=== PATIENT | female | born 1935 | race Caucasian/White ===

== ENCOUNTER 2023-02-18 17:33 | Inpatient (IN) | payer OTHER ==
[2023-02-18 18:15] LABS: BASO % 0.6 % (0-2.0); EOS % 1.6 % (0-4.5); HEMATOCRIT 29.4 % (32.4-45.2); HEMOGLOBIN 9.5 GM/dL (10.7-15.3); LYMPH % 19.8 % (8-40); MCH 28.2 pg (25.7-33.7); MCHC 32.2 g/dl (32.0-36.0); MEAN CELL VOLUME 87.5 fl (80-96); MEAN PLT VOLUME 7.6 fl (7.5-11.1); MONO % 11.4 % (3.8-10.2); NEUT % 66.6 % (42.8-82.8); PLATELET COUNT 228 10^3/uL (134-434); RBC 3.36 M/mm3 (3.60-5.2); RDW 16.4 % (11.6-15.6); WHITE BLOOD COUNT 6.4 K/mm3 (4.0-10.0)
[2023-02-18 18:35] LABS: EPI CELLS 6 /uL (0-25.1); HYALINE CASTS 1 /uL (0-3.1); URINE APPEARANCE CLEAR; URINE BACTERIA 0 /uL (0-1359); URINE BILIRUBIN NEGATIVE (NEGATIVE); URINE COLOR YELLOW; URINE GLUCOSE (UA) NEGATIVE (NEGATIVE); URINE KETONE NEGATIVE (NEGATIVE); URINE LEUK ESTERASE NEGATIVE (NEGATIVE); URINE NITRITE NEGATIVE (NEGATIVE); URINE PROTEIN 1+ (NEGATIVE); URINE RBC 19 /uL (0-23.9); URINE UROBILINOGEN 0.2 mg/dL (0.2-1.0); URINE WBC 3 /uL (0-25.8)
[2023-02-18 18:47] LABS: POTASSIUM 4.7 mmol/L (3.5-5.1)
[2023-02-18 18:50] LABS: ALBUMIN 3.5 g/dl (3.4-5.0); BLOOD UREA NITROGEN 30.6 mg/dL (7-18); MAGNESIUM 1.6 mg/dL (1.8-2.4)
[2023-02-18 18:52] LABS: CREATININE 1.2 mg/dL (0.55-1.3); PHOSPHOROUS 3.9 mg/dL (2.5-4.9)
[2023-02-18 18:54] LABS: BILIRUBIN,TOTAL 0.5 mg/dL (0.2-1); TOT PROT 7.2 g/dl (6.4-8.2)
[2023-02-18] MEDS ORDERED: MAGNESIUM SULF 50% (8.12 MEQ/2 ML-1 GM VIAL) IVPB ONE (19:49)
[2023-02-18 20:16] LABS: INR 1.72 (0.83-1.09); PROTHROMBIN TIME (PATIENT) 19.8 SEC (9.7-13.0)
[2023-02-18 20:18] LABS: ACTIVATED PTT 35.9 SECONDS (25.2-36.5)
[2023-02-18] MEDS ORDERED: MAGNESIUM 1GM/D5W - 1 GM/100 ML IVPB IVPB ONE (21:16)
[2023-02-19] MEDS: glyBURIDE 5 MG TABLET PO SCH ×3 (08:59→17:50)
[2023-02-19 09:26] LABS: BASO % 0.8 % (0-2.0); EOS % 1.1 % (0-4.5); HEMATOCRIT 29.5 % (32.4-45.2); HEMOGLOBIN 10.1 GM/dL (10.7-15.3); LYMPH % 16.4 % (8-40); MCH 29.5 pg (25.7-33.7); MCHC 34.1 g/dl (32.0-36.0); MEAN CELL VOLUME 86.4 fl (80-96); MEAN PLT VOLUME 8.5 fl (7.5-11.1); MONO % 9.9 % (3.8-10.2); NEUT % 71.8 % (42.8-82.8); PLATELET COUNT 242 10^3/uL (134-434); RBC 3.41 M/mm3 (3.60-5.2); RDW 15.9 % (11.6-15.6); WHITE BLOOD COUNT 8.8 K/mm3 (4.0-10.0)
[2023-02-19 09:47] LABS: POTASSIUM 4.5 mmol/L (3.5-5.1)
[2023-02-19] MEDS: hydrALAZINE HCL 10 MG TABLET PO SCH (09:47)
[2023-02-19] MEDS: propRANOLol HCL 10 MG TABLET PO SCH (09:48)
[2023-02-19] MEDS: ENALAPRIL MALEATE 10 MG TABLET PO SCH (09:48)
[2023-02-19] MEDS: APIXABAN 5 MG TABLET PO SCH ×3 (09:48→21:11)
[2023-02-19 09:51] LABS: ALBUMIN 3.2 g/dl (3.4-5.0); BLOOD UREA NITROGEN 26.1 mg/dL (7-18); MAGNESIUM 1.5 mg/dL (1.8-2.4)
[2023-02-19 09:52] LABS: CREATININE 0.9 mg/dL (0.55-1.3)
[2023-02-19 09:54] LABS: BILIRUBIN,TOTAL 0.7 mg/dL (0.2-1); TOT PROT 6.7 g/dl (6.4-8.2)
[2023-02-19] MEDS ORDERED: MIRTAZAPINE 15 MG TABLET (FP) PO SCH (10:00)
[2023-02-19] MEDS ORDERED: OLANZapine 2.5 MG TABLET PO SCH (10:00)
[2023-02-19] MEDS ORDERED: MAGNESIUM SULF 50% (8.12 MEQ/2 ML-1 GM VIAL) IVPB ONE (10:09)
[2023-02-19] MEDS: HALOPERIDOL LACTATE 2 MG/ML UNIT-DOSE CUPS PO PRN (21:02)
[2023-02-19] MEDS ORDERED: LORazepam 2 MG/ML SDV VIAL IM ONE (23:43)
[2023-02-20] MEDS: glyBURIDE 5 MG TABLET PO SCH ×2 (06:10→17:02)
[2023-02-20] MEDS: metFORMIN HCL 500 MG TABLET (FP) PO SCH ×3 (06:10→17:02)
[2023-02-20 09:09] LABS: BASO % 0.4 % (0-2.0); EOS % 0.9 % (0-4.5); HEMATOCRIT 25.4 % (32.4-45.2); HEMOGLOBIN 8.8 GM/dL (10.7-15.3); MCH 29.5 pg (25.7-33.7); MCHC 34.5 g/dl (32.0-36.0); MEAN CELL VOLUME 85.5 fl (80-96); MEAN PLT VOLUME 8.6 fl (7.5-11.1); MONO % 11.7 % (3.8-10.2); PLATELET COUNT 198 10^3/uL (134-434); RBC 2.96 M/mm3 (3.60-5.2); RDW 15.3 % (11.6-15.6); WHITE BLOOD COUNT 8.3 K/mm3 (4.0-10.0)
[2023-02-20] MEDS: APIXABAN 5 MG TABLET PO SCH (09:09)
[2023-02-20] MEDS: propRANOLol HCL 10 MG TABLET PO SCH (09:09)
[2023-02-20] MEDS: hydrALAZINE HCL 10 MG TABLET PO SCH (09:09)
[2023-02-20] MEDS: ENALAPRIL MALEATE 10 MG TABLET PO SCH (09:09)
[2023-02-20 09:35] LABS: POTASSIUM 3.8 mmol/L (3.5-5.1)
[2023-02-20 09:39] LABS: CALCIUM 8.2 mg/dL (8.5-10.1)
[2023-02-20 09:40] LABS: ALBUMIN 2.8 g/dl (3.4-5.0); BLOOD UREA NITROGEN 21.7 mg/dL (7-18)
[2023-02-20 09:44] LABS: BILIRUBIN,TOTAL 0.8 mg/dL (0.2-1)
[2023-02-20 09:46] LABS: TOT PROT 5.8 g/dl (6.4-8.2)
[2023-02-20] MEDS: HALOPERIDOL LACTATE 2 MG/ML UNIT-DOSE CUPS PO PRN (20:47)
[2023-02-20] MEDS: APIXABAN 2.5 MG TABLET PO SCH (21:53)
[2023-02-21] MEDS: glyBURIDE 5 MG TABLET PO SCH ×2 (06:03→17:10)
[2023-02-21] MEDS: metFORMIN HCL 500 MG TABLET (FP) PO SCH ×3 (06:03→17:10)
[2023-02-21] MEDS: APIXABAN 2.5 MG TABLET PO SCH ×2 (10:15→21:51)
[2023-02-21] MEDS: hydrALAZINE HCL 10 MG TABLET PO SCH (10:15)
[2023-02-21] MEDS: ENALAPRIL MALEATE 10 MG TABLET PO SCH (10:16)
[2023-02-21] MEDS: propRANOLol HCL 10 MG TABLET PO SCH (10:16)
[2023-02-22] MEDS: HALOPERIDOL LACTATE 2 MG/ML UNIT-DOSE CUPS PO PRN ×3 (04:18→21:00)
[2023-02-22] MEDS: metFORMIN HCL 500 MG TABLET (FP) PO SCH ×3 (06:16→17:09)
[2023-02-22] MEDS: glyBURIDE 5 MG TABLET PO SCH ×2 (06:16→17:09)
[2023-02-22] MEDS: ENALAPRIL MALEATE 10 MG TABLET PO SCH (09:12)
[2023-02-22] MEDS: APIXABAN 2.5 MG TABLET PO SCH ×2 (09:12→20:59)
[2023-02-22] MEDS: hydrALAZINE HCL 10 MG TABLET PO SCH (09:12)
[2023-02-22] MEDS: propRANOLol HCL 10 MG TABLET PO SCH (09:12)
[2023-02-22] MEDS: ACETAMINOPHEN 325 MG TABLET (FP) PO PRN (20:58)
[2023-02-23] MEDS: ACETAMINOPHEN 325 MG TABLET (FP) PO PRN (06:22)
[2023-02-23] MEDS: glyBURIDE 5 MG TABLET PO SCH ×2 (06:22→16:24)
[2023-02-23] MEDS: metFORMIN HCL 500 MG TABLET (FP) PO SCH ×3 (06:22→16:24)
[2023-02-23] MEDS: APIXABAN 2.5 MG TABLET PO SCH ×2 (09:14→21:24)
[2023-02-23] MEDS: ENALAPRIL MALEATE 10 MG TABLET PO SCH (09:14)
[2023-02-23] MEDS: propRANOLol HCL 10 MG TABLET PO SCH (09:14)
[2023-02-23] MEDS: hydrALAZINE HCL 10 MG TABLET PO SCH (09:14)
[2023-02-23] MEDS: HALOPERIDOL LACTATE 2 MG/ML UNIT-DOSE CUPS PO PRN ×2 (09:15→21:24)
[2023-02-23 21:37] VITALS: BMI 19.1
[2023-02-24] MEDS ORDERED: HALOPERIDOL LACTATE 5 MG/ML IM ONE ×2 (00:44→23:30)
[2023-02-24] MEDS: ACETAMINOPHEN 325 MG TABLET (FP) PO PRN (02:05)
[2023-02-24] MEDS: metFORMIN HCL 500 MG TABLET (FP) PO SCH ×4 (06:07→16:34)
[2023-02-24] MEDS: glyBURIDE 5 MG TABLET PO SCH ×3 (06:07→16:36)
[2023-02-24] MEDS: ENALAPRIL MALEATE 10 MG TABLET PO SCH (09:24)
[2023-02-24] MEDS: hydrALAZINE HCL 10 MG TABLET PO SCH (09:24)
[2023-02-24] MEDS: propRANOLol HCL 10 MG TABLET PO SCH (09:24)
[2023-02-24] MEDS: APIXABAN 2.5 MG TABLET PO SCH ×2 (09:24→21:50)
[2023-02-24] MEDS: HALOPERIDOL LACTATE 2 MG/ML UNIT-DOSE CUPS PO PRN (20:03)
[2023-02-25] MEDS: glyBURIDE 5 MG TABLET PO SCH ×3 (06:30→17:04)
[2023-02-25] MEDS: metFORMIN HCL 500 MG TABLET (FP) PO SCH ×4 (06:30→17:04)
[2023-02-25] MEDS: HALOPERIDOL LACTATE 2 MG/ML UNIT-DOSE CUPS PO PRN (06:43)
[2023-02-25] MEDS: hydrALAZINE HCL 10 MG TABLET PO SCH (11:23)
[2023-02-25] MEDS: ENALAPRIL MALEATE 10 MG TABLET PO SCH (11:24)
[2023-02-25] MEDS: APIXABAN 2.5 MG TABLET PO SCH ×2 (11:24→21:15)
[2023-02-25] MEDS: propRANOLol HCL 10 MG TABLET PO SCH (11:24)
[2023-02-25] MEDS: ACETAMINOPHEN 325 MG TABLET (FP) PO PRN (21:15)
[2023-02-26] MEDS: glyBURIDE 5 MG TABLET PO SCH ×4 (06:02→17:21)
[2023-02-26] MEDS: metFORMIN HCL 500 MG TABLET (FP) PO SCH ×4 (06:02→17:21)
[2023-02-26] MEDS ORDERED: cloNIDine-TTS 0.1 MG/24 HRS PATCH.TDWK TD SCH (10:00)
[2023-02-26] MEDS: APIXABAN 2.5 MG TABLET PO SCH ×2 (11:03→21:44)
[2023-02-26] MEDS: hydrALAZINE HCL 10 MG TABLET PO SCH (11:03)
[2023-02-26] MEDS: ENALAPRIL MALEATE 10 MG TABLET PO SCH (11:04)
[2023-02-26] MEDS: propRANOLol HCL 10 MG TABLET PO SCH (11:04)
[2023-02-26 15:25] LABS: HEMATOCRIT 33.2 % (32.4-45.2); HEMOGLOBIN 10.8 GM/dL (10.7-15.3); MCH 28.2 pg (25.7-33.7); MCHC 32.6 g/dl (32.0-36.0); MEAN CELL VOLUME 86.5 fl (80-96); MEAN PLT VOLUME 7.7 fl (7.5-11.1); PLATELET COUNT 250 10^3/uL (134-434); RBC 3.83 M/mm3 (3.60-5.2); RDW 15.2 % (11.6-15.6); WHITE BLOOD COUNT 6.4 K/mm3 (4.0-10.0)
[2023-02-26 16:16] LABS: POTASSIUM 4.6 mmol/L (3.5-5.1)
[2023-02-26 16:19] LABS: BLOOD UREA NITROGEN 22.4 mg/dL (7-18)
[2023-02-26 16:22] LABS: CREATININE 1.1 mg/dL (0.55-1.3)
[2023-02-26 16:23] LABS: BILIRUBIN,TOTAL 0.6 mg/dL (0.2-1)
[2023-02-26 16:24] LABS: TOT PROT 7.3 g/dl (6.4-8.2)
[2023-02-26 16:25] LABS: ALBUMIN 3.4 g/dl (3.4-5.0); CALCIUM 9.5 mg/dL (8.5-10.1)
[2023-02-27] MEDS: glyBURIDE 5 MG TABLET PO SCH ×2 (06:07→16:36)
[2023-02-27] MEDS: metFORMIN HCL 500 MG TABLET (FP) PO SCH ×3 (06:07→16:36)
[2023-02-27] MEDS: hydrALAZINE HCL 10 MG TABLET PO SCH (09:22)
[2023-02-27] MEDS: APIXABAN 2.5 MG TABLET PO SCH ×2 (09:23→21:20)
[2023-02-27] MEDS: propRANOLol HCL 10 MG TABLET PO SCH (09:23)
[2023-02-27] MEDS: ENALAPRIL MALEATE 10 MG TABLET PO SCH (09:23)
[2023-02-27] MEDS: DEXTROSE 5%-NORMAL SALINE 1,000 ML IV SCH (16:36)
[2023-02-27] MEDS: ACETAMINOPHEN 325 MG TABLET (FP) PO PRN (21:19)
[2023-02-28] MEDS: glyBURIDE 5 MG TABLET PO SCH ×2 (06:00→16:11)
[2023-02-28] MEDS: metFORMIN HCL 500 MG TABLET (FP) PO SCH ×3 (06:00→16:11)
[2023-02-28] MEDS: ACETAMINOPHEN 325 MG TABLET (FP) PO PRN (06:00)
[2023-02-28] MEDS: DEXTROSE 5%-NORMAL SALINE 1,000 ML IV SCH ×2 (11:35→21:38)
[2023-02-28] MEDS: ENALAPRIL MALEATE 10 MG TABLET PO SCH (12:40)
[2023-02-28] MEDS: propRANOLol HCL 10 MG TABLET PO SCH (12:40)
[2023-02-28] MEDS: APIXABAN 2.5 MG TABLET PO SCH ×2 (12:41→21:39)
[2023-02-28] MEDS: hydrALAZINE HCL 10 MG TABLET PO SCH (12:41)
[2023-03-01] MEDS: glyBURIDE 5 MG TABLET PO SCH ×2 (05:59→17:13)
[2023-03-01] MEDS: metFORMIN HCL 500 MG TABLET (FP) PO SCH ×3 (06:00→16:49)
[2023-03-01 08:21] VITALS: TEMP 98.2
[2023-03-01] MEDS: hydrALAZINE HCL 10 MG TABLET PO SCH (09:33)
[2023-03-01] MEDS: ENALAPRIL MALEATE 10 MG TABLET PO SCH (09:33)
[2023-03-01] MEDS: APIXABAN 2.5 MG TABLET PO SCH (09:33)
[2023-03-01] MEDS: propRANOLol HCL 10 MG TABLET PO SCH (09:33)
[2023-03-01 14:02] VITALS: BP 132/52; PULSE 69; RESP 18
== END 2023-03-01 18:06 | DRG 884 ==
LOC: JER 17:33 → JERBED 21:38 → J5S 02-19 01:25 → OBSVTOIN 02-24 14:56
PROVIDERS: ADMIT Internal Medicine; ATTEND Family Medicine
DX: F03.911 Unspecified dementia, unspecified severity, with agitation (principal); S22.42XA Multiple fractures of ribs, left side, initial encounter for closed fracture; I48.19 Other persistent atrial fibrillation; J90 Pleural effusion, not elsewhere classified; J94.2 Hemothorax; R44.3 Hallucinations, unspecified; R78.81 Bacteremia; R41.82 Altered mental status, unspecified; E11.9 Type 2 diabetes mellitus without complications; K59.00 Constipation, unspecified; K86.89 Other specified diseases of pancreas; I10 Essential (primary) hypertension; W19.XXXA Unspecified fall, initial encounter; Y92.89 Other specified places as the place of occurrence of the external cause; R53.1 Weakness
CPT/HCPCS: 0241U-QW; 36415; 70450-TC; 71045-TC-FY; 71260-TC; 72125-TC; 74177-TC; 74181-TC; 80053; 81003; 82140; 82150; 82550; 82607; 82728; 82787; 82962; 82977; 83540; 83550; 83690; 83735; 83880; 84100; 84443; 84484; 85025; 85027; 85610; 85730; 86140; 86301; 87086; 87635; 93005; 93010; 97116-GP; 97161-GP; 99285-25; G0378